=== PATIENT | female | born 1975 | race African-American/Black ===

== ENCOUNTER 2019-03-12 05:38 | Day surgery (SDC) | payer BC ==
[2019-03-12] MEDS ORDERED: FENTANYL PF 100MCG/2ML VIAL IV ONE (05:39)
[2019-03-12] MEDS ORDERED: KETOROLAC 30 MG/ML VIAL IVP ONE (05:39)
[2019-03-12] MEDS ORDERED: MIDAZOLAM HCL 2MG/2ML VIAL IV ONE (05:39)
[2019-03-12] MEDS ORDERED: KETAMINE HCL 100MG/1ML VIAL INJ ONE (05:39)
[2019-03-12] MEDS ORDERED: LIDOCAINE 2% MDV (20MG/ML) 20ML VIAL IV ONE (05:39)
[2019-03-12] MEDS ORDERED: PROPOFOL 10 MG/ML VIAL IV ONE (05:39)
[2019-03-12] MEDS ORDERED: RINGERS SOLUTION,LACTATED 1,000 ML IV ONE (06:19)
[2019-03-12] MEDS ORDERED: BUPIVACAINE 0.5% W/EPI MPF 30 ML VIAL SQ ONE (07:45)
[2019-03-12] MEDS ORDERED: LIDOCAINE 1% W/EPI 1:100,000 MDV 20 ML VIAL SQ ONE (07:45)
[2019-03-12] MEDS ORDERED: DEXAMETHASONE PRESERVATIVE FREE 10MG/ML VIAL SQ ONE (07:47)
--- NOTE | 2019-03-18 13:14 | Operative Note - [place] ---
DATE OF SURGERY: 03/12/2019 PREOPERATIVE DIAGNOSIS: Cervical spondylosis without myelopathy, ICD-10 code M47.812. POSTOPERATIVE DIAGNOSIS: Cervical spondylosis without myelopathy, ICD-10 M47.812. OPERATION: RADIOFREQUENCY RHIZOTOMY RIGHT CERVICAL FACETS C4-C5, C5-C6, AND C6-C7. SURGEON: Jaxon Vilchis D.O. ANESTHESIA: Local sedation. ANESTHESIA PROVIDER: Yessica Bradley CRNA INDICATION: This patient presents with pain which is right sided neck. Examination shows tenderness to the cervical spine. Range of motion does cause pain in the neck with extension. Diagnostics showed diffuse multiple levels of spondylosis of facet series 75% pain control. Due to the failure of therapies and the success of the facet series, the patient presents for a rhizotomy for more supervisor intermediates relief. PROCEDURE: Intravenous line, vital sign monitoring, IV sedation, prepped and draped in sterile technique. Under imaging the cervical facets in the area of pain on the right were identified and marked at C4-C5, C5-C6 and C6-C7. Each one of these points under the skin were infiltrated. A 20-gauge rhizotomy cannula was positioned. Stimulation trial was conducted. Rhizotomy burn performed. Local with antiinflammatory into the sites. Topical antibiotic and sterile dressing applied. Will monitor and evaluation. JOB NUMBER: [id number] MTDD
== END 2019-03-12 08:40 | disposition home or self-care (01) ==
LOC: SUR 05:38
PROVIDERS: ATTEND Pain Medicine Interventional Pain Medicine
DX: M47.812 Spondylosis without myelopathy or radiculopathy, cervical region (principal)
CPT/HCPCS: 64633; 64634 ×2; 01936; J1885; J1100; J3010; J3490; J7120